=== PATIENT | female | born 1995 | race African-American/Black ===

== ENCOUNTER 2020-09-23 21:02 | Inpatient (IN) ==
[2020-09-23] MEDS ORDERED: LACTATED RINGERS 1,000 ML IV ONE (21:43)
[2020-09-23] MEDS ORDERED: TERBUTALINE 1 MG/1 ML VIAL SUBCUT PRN (21:43)
[2020-09-23] MEDS ORDERED: ONDANSETRON 4 MG/2 ML VIAL IV ONE (22:31)
[2020-09-23] MEDS: MEPERIDINE 50 MG/1 ML VIAL IV PRN (22:49)
[2020-09-23 23:20] LABS: Bilirubin,Urine Negative (Negative); Blood, Urine Negative (Negative); Glucose,Urine (UA) Negative (Negative); Ketones,Urine Negative (Negative); Nitrite,Urine Negative (Negative); Protein,Urine Negative; Urine Appearance CLEAR (Clear); Urine Color Colorless (Yellow); Urine Specific Gravity 1.001 (1.001-1.035); Urine Urobilinogen < 2.0 EU/DL (0.2-1.0); WBC,Urine <1 /HPF (0-6)
[2020-09-24] MEDS: MEPERIDINE 50 MG/1 ML VIAL IV PRN ×2 (01:40→07:31)
[2020-09-24] MEDS ORDERED: NIFEdipine 10 MG CAPSULE PO ONE ×2 (02:10→04:03)
[2020-09-24] MEDS: LACTATED RINGERS 1,000 ML IV SCH ×2 (03:50→07:33)
[2020-09-24 05:53] LABS: Basophils # 0.1 10*3/uL (0.0-0.2); Basophils % 0.3 % (0.0-0.8); Eosinophils % 0.1 % (0.00-10.9); Hematocrit 33.8 VOL% (35.7-47.0); Hemoglobin 10.9 GM/DL (12.0-16.0); Immature Granulocytes % 1.5 %; Immature Granulocytes Absolute 0.23 #; Lymphocytes # 1.5 10*3/uL (1.4-4.0); Lymphocytes % 9.6 % (21.3-54.2); Mean Corpuscular HGB Conc 32.2 GM/DL (32-36); Mean Corpuscular Volume 84.5 FL (87-102); Mean Platelet Volume 12.4 FL (9.6-12.0); Monocytes % 6.9 % (1.7-12.7); Neutrophils % 81.6 % (38.7-73.9); Platelet Count 185 T/CUMM (130-400); Red Cell Distribution Width 14.5 % (9.3-17.3); White Blood Count 15.5 T/CUMM (4-12)
[2020-09-24 06:04] LABS: PT Patient Result 10.9 SECS (9.8-11.9); Partial Thromboplastin Time 28.8 SECS (23.9-33.8)
[2020-09-24 06:20] LABS: Albumin 2.3 G/DL (3.4-5.0); Bilirubin,Direct 0.18 MG/DL (0.0-0.20); Bilirubin,Total 0.4 MG/DL (0.2-1.0); Calcium 9.1 MG/DL (8.5-10.1); Osmolality,Calculated 282.1 MOS/KG (273-304); Total Protein 7.4 G/DL (6.4-8.3); Uric Acid 5.6 MG/DL (2.6-6.0)
[2020-09-24 06:50] LABS: Anisocytosis 1+; Macrocytosis Slight; Platelet Estimate Normal
[2020-09-24 06:51] LABS: Giant Platelets Few
[2020-09-24] MEDS ORDERED: ONDANSETRON 4 MG/2 ML VIAL IV PRN (07:55)
[2020-09-24] MEDS ORDERED: diphenhydrAMINE 50 MG/1 ML VIAL IV PRN (07:59)
[2020-09-24] MEDS ORDERED: PROMETHAZINE 25 MG/1 ML VIAL IM ONE (07:59)
[2020-09-24] MEDS ORDERED: NALOXONE 0.4 MG/ML VIAL IV PRN (07:59)
[2020-09-24] MEDS ORDERED: ePHEDrine 50 MG/ML VIAL IV PRN (07:59)
[2020-09-24] MEDS ORDERED: OXYTOCIN/LR 20 UNIT/1,000 ML BAG IV SCH (08:00)
[2020-09-24] MEDS ORDERED: fentaNYL 2 MCG/ROPIV 0.2% EPID 100 ML EPIDURAL SCH (08:00)
[2020-09-24] MEDS ORDERED: FAMOTIDINE 20 MG/2 ML VIAL IV ONE ×2 (08:01→08:05)
[2020-09-24] MEDS ORDERED: CITRIC ACID/SODIUM CITRATE 30 ML UDCUP PO ONE (08:01)
[2020-09-24] MEDS ORDERED: CITRIC ACID/SODIUM CITRATE 30 ML UDCUP ONE (08:04)
[2020-09-24] MEDS ORDERED: miSOPROStoL 200 MCG TABLET ONE (12:44)
[2020-09-24] MEDS ORDERED: TRANEXAMIC ACID 1,000 MG/10 ML VIAL ONE (12:44)
[2020-09-24] MEDS ORDERED: CARBOPROST TROMETHAMINE 250 MCG/ML AMP IM ONE (12:45)
[2020-09-24] MEDS ORDERED: METHYLERGONOVINE 0.2 MG/1 ML AMP ONE (12:45)
[2020-09-24 14:02] LABS: Bacteria,Urine Occasional /HPF (Few); Bilirubin,Urine Negative (Negative); Blood, Urine Negative (Negative); Glucose,Urine (UA) Negative (Negative); Ketones,Urine Negative (Negative); Nitrite,Urine Negative (Negative); Protein,Urine Negative; RBC,Urine 2 /HPF (0-4); Urine Appearance CLEAR (Clear); Urine Color Straw (Yellow); Urine Specific Gravity 1.003 (1.001-1.035); Urine Urobilinogen < 2.0 EU/DL (0.2-1.0); WBC,Urine 4 /HPF (0-6)
[2020-09-24 15:00] LABS: Cord Arterial Blood HCO3 18.7 MMOL/L
[2020-09-24 15:02] LABS: Cord Venous Blood HCO3 21.6 MMOL/L; Cord Venous Blood PO2 30.7
[2020-09-24] MEDS ORDERED: WITCH HAZEL PADS 100/JAR TOP PRN (15:48)
[2020-09-24] MEDS ORDERED: MEASLES/MUMPS/RUBELLA VACCINE 0.5 ML VIAL SUBCUT ONE (15:48)
[2020-09-24] MEDS ORDERED: OXYTOCIN/LR 20 UNIT/1,000 ML BAG IV ONE (15:48)
[2020-09-24] MEDS ORDERED: DIPH/TET/ACEL PERT BOOSTER VACCINE 0.5 ML VIAL IM ONE (15:48)
[2020-09-24] MEDS ORDERED: HYDROCORTISONE 2.5% RECTAL CREAM 30 GM TUBE TOP PRN (15:48)
[2020-09-24] MEDS ORDERED: LANOLIN 50% CREAM 0.3 OZ TUBE TOP PRN (15:48)
[2020-09-24] MEDS ORDERED: BENZOCAINE 20%/MENTHOL 0.5% SPRAY 56 GM CAN TOP PRN (15:48)
[2020-09-24] MEDS ORDERED: oxyCODONE/ACETAMINOPHEN 5-325 MG TABLET PO PRN ×2 (15:48)
[2020-09-24] MEDS ORDERED: RHO(D) IMMUNE GLOBULIN 300 MCG SYRINGE IM ONE (15:48)
[2020-09-24] MEDS ORDERED: BISACODYL 10 MG SUPP RECTAL PRN (15:48)
[2020-09-24] MEDS ORDERED: ACETAMINOPHEN 325 MG TABLET PO PRN (15:48)
[2020-09-24] MEDS: IBUPROFEN 800 MG TABLET PO PRN (21:33)
[2020-09-24] MEDS: DOCUSATE SODIUM 100 MG CAPSULE PO SCH (21:33)
[2020-09-25 06:02] LABS: Basophils # 0.1 10*3/uL (0.0-0.2); Basophils % 0.4 % (0.0-0.8); Eosinophils # 0.1 10*3/uL (0.0-0.87); Eosinophils % 0.7 % (0.00-10.9); Hematocrit 29.4 VOL% (35.7-47.0); Hemoglobin 9.8 GM/DL (12.0-16.0); Immature Granulocytes % 1.1 %; Immature Granulocytes Absolute 0.15 #; Lymphocytes # 2.6 10*3/uL (1.4-4.0); Lymphocytes % 18.7 % (21.3-54.2); Mean Corpuscular HGB Conc 33.3 GM/DL (32-36); Mean Corpuscular Volume 83.1 FL (87-102); Monocytes % 8.6 % (1.7-12.7); Neutrophils % 70.5 % (38.7-73.9); Platelet Count 160 T/CUMM (130-400); Red Blood Count 3.54 MC/CUMM (3.8-5.5); Red Cell Distribution Width 14.6 % (9.3-17.3)
[2020-09-25] MEDS: IBUPROFEN 800 MG TABLET PO PRN ×2 (06:18→17:59)
[2020-09-25] MEDS: DOCUSATE SODIUM 100 MG CAPSULE PO SCH ×2 (08:56→21:08)
[2020-09-26 04:28] VITALS: BP 135/77
[2020-09-26] MEDS: IBUPROFEN 800 MG TABLET PO PRN (08:46)
[2020-09-26] MEDS: DOCUSATE SODIUM 100 MG CAPSULE PO SCH (08:47)
== END 2020-09-26 12:10 | disposition home or self-care (01) | DRG 560 ==
LOC: N.LDOUT 21:02 → N.LD 21:03
PROVIDERS: ADMIT Obstetrics & Gynecology; ATTEND Obstetrics & Gynecology